=== PATIENT | male | born 1955 | race Caucasian/White ===

== ENCOUNTER 2020-07-13 21:06 | Emergency (ER) | payer MEDICARE, MEDICAID, SELFPAY ==
[2020-07-13 21:11] VITALS: BP 168/71; PULSE 73; RESP 18; TEMP 36.4; O2SAT 97; BMI 27.8
--- NOTE | 2020-07-13 21:22 | ED.RN ---
pt talking non-stop and ideas jumping from one subject to another. pt states he is not suicidal but when people get into his face he states i want to blow myself up with a blood clot to the heart. when asked if he is homicidal he states I'll kill myself before others. States he is not suicidal since meeting cristy when he moved to [facility]. States spiritual pain in my head and heart we are living in [facility] right now braxton barry said 'I will kill you'. states he took his meds yesterday but not today because they are trying to poison him and they make him weak and make him fall because his legs don't work when he takes the meds.
--- NOTE | 2020-07-13 22:03 | ED.DCSUM_ITS ---
History of Present Illness Chief Complaint: Mental Health Informant: Patient Narrative: Presents with schizoaffective disorder. They reported that he will not take his medicines. He stated they are poison and he does not want to take. They stated he voiced suicidal ideation. He is not suicidal currently. He is quite delusional. He is not sure if he is never had a or children. He states that whiskey is the best drug but he has not drank for some time. He is pleasant conversational and not aggressive. Past Medical History - Allergies and Home Meds Allergies/Adverse Reactions: Allergies hydroxyzine Allergy (Verified 07/13/20 21:10) PT UNSURE OF REACTION lorazepam Allergy (Verified 07/13/20 21:10) PT UNSURE OF REACTION olanzapine [From Zyprexa] Allergy (Verified 07/13/20 21:10) PT UNSURE OF REACTION Primary Care Physician: Frankie Jj MD [Primary Care Provider] - Prior records reviewed: Yes Past Medical History: - - Reviewed Surgical History: noncontributory Smoking Status: Former smoker Alcohol: None Drugs: None Review of Systems General: Denies: Chills, Fever, Sweats Eyes: Denies: Visual changes - bilaterally, Diplopia ENT: Denies: Rhinorrhea, Sore throat Cardiovascular: Denies: Chest pain, Palpitations Respiratory: Denies: Dyspnea, Cough, Dyspnea on exertion Gastrointestinal: Denies: Abdominal pain, Nausea, Vomiting, Diarrhea, Melena, Hematochezia Genitourinary: Denies: Dysuria, Hematuria, Frequency Musculoskeletal: Denies: Back pain, Extremity Pain Skin: Denies: Rash, Wounds Neurological: Denies: Headache, Weakness, Numbness Psych: Denies: Suicidal thoughts, Suicidal ideations Physical Exam Vital Signs/Narrative: Vital Signs Temp Pulse Resp BP Pulse Ox 07/13/20 21:11 97.6 F L 73 18 168/71 H 97 General: Well nourished, Well developed, No Acute Distress Head: Normocephalic, Atraumatic Eyes: Perrl, EOMI ENT: Moist mucous membranes, No rhinorrhea Neck: Supple, Nontender Cardiovascular: Regular rate, Regular rhythm, No murmurs Respiratory: No distress, CTA bilaterally, Chest nontender Abdomen: Soft, Nontender, Nondistended, Normal bowel sounds Back: Nontender, Normal Inspection Extremities: Nontender, No edema Skin: Normal color, No rash Neurological: Alert, Oriented x3, Cranial nerves II-XII grossly intact, Normal Strength, Normal Sensation, - - Patient is conversational and delusional Psychological: Normal affect, Normal Mood. Negative for: Agitated Diagnostic/Tx/Re-eval - Medical Decision Making Patient has schizoaffective disorder and is delusional not wanting to take his medications. He will be screened with lab work. He will be medically cleared and seen by crisis. He is not suicidal homicidal or aggressive at this time. Work reviewed. Hemoglobin 11.2. Otherwise CBC BMP alcohol and tox negative. Seen by crisis and he refuses to talk to them. Given the fact that he is delusional [facility] stated that he wanted commit suicide. He has not made the statements here. He has had some intermittent aggressiveness with yelling. He does not want to take his medicines. I believe he will need to be placed in a psychiatric facility ED Disposition - Plan for ED Patient: Disposition: Psychiatric Hospital or Unit Diagnosis: Dementia with behavioral disturbance, Suicidal ideation Instructions: ED Schizoaffective Disorder
[2020-07-13 22:21] LABS: Absolute Lymphocyte Count 1.18 X10^3/uL (0.83-4.51); Absolute Neutrophil Count 6.3 X10^3/uL (2.0-7.7); Basophil# 0.07 X10^3/uL; Basophil% 0.8 % (0-1); Eosinophil# 0.12 X10^3/uL; Eosinophils% 1.4 % (0-5); Hematocrit 34.4 % (40-54); Hemoglobin 11.2 g/dL (13.0-16.5); Lymphocyte # 1.18 X10^3/ul (4.0); Mean Corp Hgb Conc 32.6 g/dL (32-36); Mean Corpuscular Hgb 28.2 pg (27.0-32.0); Mean Corpuscular Volume 86.6 fL (80-94); Mean Platelet Vol. 8.6 fl (6.2-12.0); Monocyte# 0.72 X10^3/uL; Monocyte% 8.5 % (0-10); NRBC Flagged by Analyzer 0 % (0-5); Neutrophil # 6.33 X10^3/uL (2.7-7.7); Neutrophil % 74.9 % (47-70); Platelet Count 330 K/mm3 (150-450); RBC Distribution Width CV 15.4 % (11.6-14.6); RBC Distribution Width SD 48.9 fl (35.1-43.9); Red Blood Count 3.97 M/mm3 (4.6-6.2); White Blood Count 8.5 K/mm3 (4.4-11.0)
[2020-07-13 22:33] LABS: Anion Gap 5 (5-15); BUN 16 mg/dL (7-18); BUN/Creat Ratio 15.5 RATIO (10-20); Calcium,Total 8.6 mg/dL (8.5-10.1); Chloride 105 mmol/L (98-107); Creatinine, Serum 1.03 mg/dL (0.70-1.30); EST Glomerular Filtration Rate 77 mL/min (>60); Est Glom Filt Rate - Afr Amer 93 mL/min (>60); Estimated Creatinine Clearance 72.84 ml/min; Glucose 94 mg/dL (74-106); Potassium 4.3 mmol/L (3.5-5.1); Sodium Level 136 mmol/L (136-145)
[2020-07-13 22:39] LABS: Amphetamine Urine VISTA NEGATIVE (<1000 ng/mL); Barbiturate Urine VISTA NEGATIVE (< 200 ng/mL); Benzodiazepine Urine VISTA NEGATIVE (< 200 ng/mL); Cocaine Urine VISTA NEGATIVE (< 300 ng/mL); Ecstacy Urine VISTA NEGATIVE (< 500 ng/mL); Methadone Urine VISTA NEGATIVE (< 300 ng/mL); PCP Urine VISTA NEGATIVE (< 25 ng/mL); THC Urine VISTA NEGATIVE (< 50 ng/mL); Vista UDS pH Range 7
[2020-07-13 22:47] LABS: Alcohol, Blood (Medical)-Serum < 3.0 mg/dL
--- NOTE | 2020-07-13 23:02 | ED.RN ---
[facility] PAGED AND REPORT FAXED
[2020-07-13 23:07] VITALS: RESP 16
[2020-07-14] VITALS (15 sets, daily range): BP systolic 140–163; BP diastolic 56–77; PULSE 60–82; RESP 14–18; TEMP 36.7; O2SAT 96–99; BMI 27.8
--- NOTE | 2020-07-14 09:19 | NURSING ---
KATALINA MUNOZ WITH [facility] WANTED TO CALL [facility] TO MAKE SURE THAT AFTER PLACEMENT THE [facility] WILL TAKE THE PT BACK, LAST UPDATE A LITTLE AFTER 8. FAXED COVID RESULTS TO [facility] IN MEANTIME
[2020-07-14] MEDS: Ziprasidone IM 20 MG/ML VIAL IM (09:24)
--- NOTE | 2020-07-14 11:38 | NURSING ---
PER OMAR WITH [facility]; SHE SPOKE WITH LUDY RAHMAN WITH [facility]. THEY WANT THE PT PLACED AT [facility]. OMAR HAS FAXED ALL INFORMATION TO [facility] AND WILL KEEP US UPDATED, SHE HAS NOT HEARD BACK FROM ASSURANCE.
[2020-07-14] MEDS: DiphenhydrAMINE 50 MG/ML Syringe IM (14:03)
--- NOTE | 2020-07-14 14:03 | ED.RN ---
diana onofre refused pt. referral to [facility].
--- NOTE | 2020-07-14 17:17 | ED.RN ---
ATTEMPTED TO CALL [facility] TWICE WITH NURSE TO NURSE REPORT BUT NO ANSWER AT THIS TIME.
--- NOTE | 2020-07-14 18:24 | ED.RN ---
ATTEMPTED TO CALL REPORT TO [facility] AN ADDITIONAL TIME BUT STILL NO RESPONSE
--- NOTE | 2020-07-14 19:11 | ED.RN ---
THIS NURSE ATTEMPTED TO CALL [facility] AN ADDITIONAL TIME. CALLED [facility], THEY TRANSFERRED ME TO FLOOR AND STILL NO ANSWER. REPORT GIVEN TO PRATIK.
== END 2020-07-14 19:27 ==
PROVIDERS: Emergency Medicine; Emergency Provider Emergency Medicine; PCP Family Medicine
DX: F03.91 Unspecified dementia, unspecified severity, with behavioral disturbance (principal); R45.851 Suicidal ideations; Z87.891 Personal history of nicotine dependence
CPT/HCPCS: 36415; 80048; 80307; 82077; 85025; 87426; 96372; 99285; J3486